=== PATIENT | female | born 1960 | race Caucasian/White ===

== ENCOUNTER → 2025-02-25 08:32 | Outpatient (CLI) | payer OTHER, SELFPAY ==
[2025-02-25 09:39] LABS: Hemoglobin A1C% w Est Avg Glu 5.7 % (4.0-6.0)
[2025-02-25 10:00] LABS: Cholesterol 135 mg/dL (140-199); HDL Cholesterol 64 mg/dL (40-60); Triglycerides 142 mg/dL (35-150)
[2025-02-25 10:14] LABS: Free T3, Triiodothyronine Free 6.40 pg/mL (2.77-5.27); Free T4, Direct Thyroxine 0.83 ng/dL (0.78-2.19)
[2025-02-26 13:52] LABS: Thyroid Stimulating Hormone 0.657 uIU/mL (0.47-4.68)
== END ==
PROVIDERS: PCP Student in an Organized Health Care Education/Training Program; Referring Provider Student in an Organized Health Care Education/Training Program; Visit Provider Student in an Organized Health Care Education/Training Program
DX: Z13.1 Encounter for screening for diabetes mellitus (principal); Z13.220 Encounter for screening for lipoid disorders; Z01.83 Encounter for blood typing; E03.9 Hypothyroidism, unspecified
CPT/HCPCS: 36415; 80061; 83036; 84439; 84443; 84481; 86850; 86900; 86901

== ENCOUNTER → 2025-04-12 14:58 | Outpatient (CLI) | payer OTHER, SELFPAY ==
--- NOTE | 2025-04-12 14:59 | DI.MG.S_ITS ---
MM screening mammo BI: 04/12/2025. BI-RADS: 1 CLINICAL: 64-year old female for bilateral screening mammogram. Tyrer-Cuzick lifetime risk of 7.1%. No personal or first-degree family history of breast cancer. PRIOR EXAMS OS 01-28-24, 01-12-23. MAMMOGRAPHY TECHNIQUE: 2D and 3D (tomosynthesis) digital mammographic views obtained, with additional images as needed for full coverage. Current study was also evaluated with a Computer Aided Detection (CAD) system. DENSITY C. The breasts are heterogeneously dense, which may obscure small masses. MAMMOGRAPHY FINDINGS Bilateral: No suspicious mass, asymmetry, microcalcification, or other abnormality seen. No significant change from comparison. IMPRESSION: * No evidence of malignancy. RECOMMENDATIONS Bilateral * Annual screening mammography. OVERALL ASSESSMENT CATEGORY BI-RADS-1: Negative. [employer] recommends annual screening mammography beginning at age 40 for women with average risk of breast cancer. ELECTRONICALLY SIGNED: Orlando Leon M.D. on 04/13/2025 at 09:19:49 AM PT Interpreting Station ID: [id number]
== END ==
LOC: MAMMO 14:59
PROVIDERS: PCP Student in an Organized Health Care Education/Training Program; Referring Provider Student in an Organized Health Care Education/Training Program; Visit Provider Student in an Organized Health Care Education/Training Program
DX: Z12.31 Encounter for screening mammogram for malignant neoplasm of breast (principal); R92.333 Mammographic heterogeneous density, bilateral breasts
CPT/HCPCS: 77063; 77067